=== PATIENT | female | born 1940 | race Caucasian/White ===

== ENCOUNTER 2021-03-18 16:46 | Inpatient (IN) | payer MEDICARE, OTHER ==
[~2021-03-18] VITALS: Ht 167.6 cm; Wt 83.5 kg
[2021-03-18] MEDS ORDERED: ARIP15TA3 PO (21:56)
[2021-03-18] MEDS ORDERED: MIRT-121 PO (21:56)
[2021-03-18] MEDS ORDERED: CLON1TAB PO (21:56)
[2021-03-18] MEDS ORDERED: BENA20TA78 PO (21:56)
[2021-03-18] MEDS ORDERED: TRAZ-182 PO (21:56)
[2021-03-18] MEDS ORDERED: AMLO-213 PO (21:56)
[2021-03-18] MEDS ORDERED: BLOOD SUGAR DIAGNOSTIC 1 EACH STRIP IN ONE (22:00)
[2021-03-18] MEDS ORDERED: ACETAMINOPHEN 325 MG TABLET PO PRN (22:00)
[2021-03-18] MEDS ORDERED: LORAZEPAM 0.5 MG TABLET PO PRN (22:00)
[2021-03-18] MEDS ORDERED: MAGNESIUM HYDROXIDE 30 ML UDC PO PRN (22:00)
[2021-03-18] MEDS ORDERED: MAG HYDROX/AL HYDROX/SIMETH 30 ML UDC PO PRN (22:00)
[2021-03-18] MEDS ORDERED: TEMAZEPAM 7.5 MG CAPSULE PO PRN (22:00)
[2021-03-19 03:47] VITALS: BP 146/77
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
[2021-03-19 08:00] VITALS: BP 126/70
[2021-03-19] MEDS: BENAZEPRIL HCL 10 MG TABLET PO SCH (08:57)
[2021-03-19] MEDS: AMLODIPINE BESYLATE 10 MG TABLET PO SCH (08:57)
[2021-03-19 14:22] LABS: CHOLESTEROL 135 mg/dL (<200); HDL CHOLESTEROL 68 mg/dL (40-60); LDL 55 mg/dL (0-99); TRIGLYCERIDES 52 mg/dL (30-150)
[2021-03-19 16:00] VITALS: BP 119/64
[2021-03-19 20:00] VITALS: BP 128/70
[2021-03-19 20:43] LABS: BILIRUBIN,TOTAL 0.2 mg/dL (0.2-1.0); CALCIUM, SERUM 8.6 mg/dL (8.5-10.1); CREATININE 1.1 mg/dL (0.6-1.3); POTASSIUM 3.8 mmol/L (3.5-5.1); TOTAL PROTEIN, SERUM 6.8 g/dL (6.4-8.2)
[2021-03-19] MEDS: MIRTAZAPINE 15 MG TABLET PO SCH (21:15)
--- NOTE | 2021-03-19 23:06 | NUR ---
RN NOTE: INSOMNIA VERBALIZED INABILITY TO SLEEP AND REQUESTED SLEEPING MEDICINE. PRN RESTORIL 15 MG PO ADMINISTERED.
[2021-03-20] MEDS ORDERED: LORAZEPAM 0.5 MG TABLET PO PRN (04:00)
[2021-03-20 08:00] VITALS: BP 140/66
[2021-03-20] MEDS: AMLODIPINE BESYLATE 10 MG TABLET PO SCH (08:26)
[2021-03-20] MEDS: BENAZEPRIL HCL 10 MG TABLET PO SCH (08:27)
[2021-03-20] MEDS: ARIPIPRAZOLE 5 MG TABLET PO SCH (08:30)
[2021-03-20 16:00] VITALS: BP 122/66
[2021-03-20 19:34] VITALS: BP 114/64
[2021-03-20 20:05] VITALS: BP 114/64
--- NOTE | 2021-03-20 21:30 | NUR ---
RN NOTE PATIENT WAS SEEN BY DR. FRANCOIS, NO NEW ORDER AT THIS TIME.
[2021-03-20] MEDS: MIRTAZAPINE 15 MG TABLET PO SCH (21:31)
[2021-03-20] MEDS: TEMAZEPAM 7.5 MG CAPSULE PO PRN (22:38)
--- NOTE | 2021-03-20 22:39 | NUR ---
RN NOTE: INSOMNIA PATIENT VERBALIZED INABILITY TO SLEEP AND REQUESTED SLEEPING MEDICINE. PRN RESTORIL 7.5 MG 1 CAP PO ADMINISTERED ORDERED. WILL CONTINUE TO MONITOR FOR ANY CHANGE OF CONDITION.
[2021-03-21 08:00] VITALS: BP 113/61
[2021-03-21] MEDS: BENAZEPRIL HCL 10 MG TABLET PO SCH (09:01)
[2021-03-21] MEDS: AMLODIPINE BESYLATE 10 MG TABLET PO SCH (09:01)
[2021-03-21] MEDS: ARIPIPRAZOLE 5 MG TABLET PO SCH (09:01)
--- NOTE | 2021-03-21 09:31 | NUR ---
MADELIN Initial Discharge Plan: Patient currently resides at home located at [address] [place] [address]; ([phone]). MADELIN will discuss treatment and discharge plan with family and MD for appropriate placement.
--- NOTE | 2021-03-21 10:57 | NUR ---
SW Family Contact: SW attempted to contact patient's son Fernando ([phone]), however, mailbox was full and this SW was unable to leave a message.
--- NOTE | 2021-03-21 12:41 | NUR ---
MADELIN Family Contact: MADELIN spoke with patient's son Fernando ([phone]) to notify of patient's admission. Son Fernando stated pt resides at a [facility] called [facility]. SW discussed treatment and discharge planning. Son reported he lives in [place] and is involved in her care.
--- NOTE | 2021-03-21 12:42 | NUR ---
[facility]: MADELIN contacted the adele King ([phone]) provided for [facility]. MADELIN contacted ([phone], , [place]: [phone] who is the emergency response coordinator; MADELIN left a voicemail).
[2021-03-21 15:59] VITALS: BP 104/65
--- NOTE | 2021-03-21 19:24 | NUR ---
alert and with good eye contact speech clear smiles when spoken to assisted back to bed after visiting the bathroom using her walker slow steady gait
[2021-03-21 20:00] VITALS: BP 125/78
[2021-03-21] MEDS: MIRTAZAPINE 15 MG TABLET PO SCH (21:17)
[2021-03-21] MEDS: TEMAZEPAM 7.5 MG CAPSULE PO PRN (22:59)
--- NOTE | 2021-03-21 22:59 | NUR ---
GPS-RN NOTES: INSOMNIA PATIENT C/O INABILITY TO SLEEP. PRN RESTORIL 7.5MG PO GIVEN. WILL CONTINUE TO MONITOR.
[2021-03-22 08:00] VITALS: BP 130/71
[2021-03-22] MEDS: BENAZEPRIL HCL 10 MG TABLET PO SCH (09:08)
[2021-03-22] MEDS: ARIPIPRAZOLE 5 MG TABLET PO SCH ×2 (09:08→22:38)
[2021-03-22] MEDS: AMLODIPINE BESYLATE 10 MG TABLET PO SCH (09:09)
--- NOTE | 2021-03-22 09:28 | NUR ---
[employer]: SW received a call from Chante the controller operations and hr manager. She reported that pt requires more assistance and they are unable to provide the appropriate care for pt. Chante expressed that pt only has a nurse visiting the pt everyday for medication management and has a caregiver who checks in on pt for about an hour.
--- NOTE | 2021-03-22 09:28 | NUR ---
SW Family Contact: SW attempted to contact patient's son Fernando ([phone]), however, mailbox was full and this SW was unable to leave a message. SW wanted to discuss nursing facility options.
--- NOTE | 2021-03-22 13:17 | NUR ---
SNF Referral: MADELIN sent clinicals to Lillian alvarez from [facility] ([phone]) for placement option. SW sent H & P, progress notes, and medication list.
--- NOTE | 2021-03-22 13:19 | NUR ---
MADELIN Family Contact: SW contacted patient's son Fernando ([phone]) and discussed discharge planning. MADELIN expressed that Chante management of [facility] ([phone]) is not receiving the appropriate care and needs higher level of care. Fernando son was agreeable with this.
--- NOTE | 2021-03-22 13:29 | NUR ---
Doctor Contact: SW received a call from patient's psychiatrist Dr. Lopes ([phone]) who wanted updates on pt and her status. Doctor stated that pt will need a higher level of care and has attempted in the past to offer but pt had denied.
[2021-03-22 16:06] VITALS: BP 114/61
[2021-03-22] MEDS: MIRTAZAPINE 15 MG TABLET PO SCH (21:16)
[2021-03-23] MEDS: TEMAZEPAM 7.5 MG CAPSULE PO PRN (00:03)
--- NOTE | 2021-03-23 00:03 | NUR ---
GPS-RN NOTES: INSOMNIA PATIENT IS UNABLE TO SLEEP. PRN RESTORIL 7.5MG PO GIVEN ORDERED. WILL CONTINUE TO MONITOR.
[2021-03-23 08:00] VITALS: BP 132/80
[2021-03-23] MEDS: ARIPIPRAZOLE 5 MG TABLET PO SCH ×2 (08:24→21:40)
[2021-03-23] MEDS: BENAZEPRIL HCL 10 MG TABLET PO SCH (08:25)
[2021-03-23] MEDS: AMLODIPINE BESYLATE 10 MG TABLET PO SCH (08:25)
--- NOTE | 2021-03-23 14:46 | NUR ---
[employer]: SW received a call from patient's case management director Kinsey ([phone]) who is pt's assigned case management director. Kinsey wanted updates on pt's status.
[2021-03-23 16:00] VITALS: BP 140/76
[2021-03-23 20:00] VITALS: BP 143/76
[2021-03-23] MEDS: MIRTAZAPINE 15 MG TABLET PO SCH (21:22)
[2021-03-24] MEDS: TEMAZEPAM 7.5 MG CAPSULE PO PRN ×2 (01:36→21:25)
--- NOTE | 2021-03-24 01:38 | NUR ---
GPS-RN NOTES: INSOMNIA PATIENT IS UNABLE TO SLEEP. PRN RESTORIL 7.5MG PO GIVEN ORDERED. WILL CONTINUE TO MONITOR.
[2021-03-24 08:00] VITALS: BP 117/66
[2021-03-24] MEDS: ARIPIPRAZOLE 5 MG TABLET PO SCH ×2 (08:37→21:24)
[2021-03-24] MEDS: AMLODIPINE BESYLATE 10 MG TABLET PO SCH (08:37)
[2021-03-24] MEDS: BENAZEPRIL HCL 10 MG TABLET PO SCH (08:38)
--- NOTE | 2021-03-24 11:33 | NUR ---
MADELIN Note: SW spoke with patient and discussed discharge planning. SW shared that she is accepted at [facility] and she was accepting of this.
--- NOTE | 2021-03-24 13:12 | NUR ---
Court Hearing: Patient's court hearing for 5800 was today and it was upheld for GD.
--- NOTE | 2021-03-24 13:24 | NUR ---
MADELIN Family Contact: SW attempted to contact patient's son Fernando ([phone]) to notify that pt is accepted at [facility], however, mailbox was full.
--- NOTE | 2021-03-24 13:25 | NUR ---
SNF Contact: SW received a call from Lillian admin from [facility] ([phone]) who stated that pt is accepted.
[2021-03-24 16:00] VITALS: BP 117/53
[2021-03-24 20:00] VITALS: BP 129/90
[2021-03-24] MEDS: MIRTAZAPINE 15 MG TABLET PO SCH (21:24)
[2021-03-25 08:00] VITALS: BP 133/68
[2021-03-25] MEDS: ARIPIPRAZOLE 5 MG TABLET PO SCH ×2 (08:29→21:37)
[2021-03-25] MEDS: BENAZEPRIL HCL 10 MG TABLET PO SCH (08:29)
[2021-03-25] MEDS: AMLODIPINE BESYLATE 10 MG TABLET PO SCH (08:29)
[2021-03-25 16:00] VITALS: BP 112/73
--- NOTE | 2021-03-25 19:46 | NUR ---
RN OPENING NOTES Patient is awake A&Ox2, hopeful and positive. Not oriented to situation and disorganized thoughts. no HI/SI. Safety measures in place.
[2021-03-25 20:00] VITALS: BP 141/77
[2021-03-25] MEDS: MIRTAZAPINE 15 MG TABLET PO SCH (21:37)
[2021-03-26 08:00] VITALS: BP 133/72
[2021-03-26] MEDS: ARIPIPRAZOLE 5 MG TABLET PO SCH ×2 (08:09→21:50)
[2021-03-26] MEDS: BENAZEPRIL HCL 10 MG TABLET PO SCH (08:09)
[2021-03-26] MEDS: AMLODIPINE BESYLATE 10 MG TABLET PO SCH (08:10)
[2021-03-26 16:00] VITALS: BP 116/60
[2021-03-26 20:00] VITALS: BP 136/61
[2021-03-26] MEDS: MIRTAZAPINE 15 MG TABLET PO SCH (21:51)
[2021-03-27 08:00] VITALS: BP 136/66
[2021-03-27] MEDS: ARIPIPRAZOLE 5 MG TABLET PO SCH ×2 (08:37→21:25)
[2021-03-27] MEDS: AMLODIPINE BESYLATE 10 MG TABLET PO SCH (08:37)
[2021-03-27] MEDS: BENAZEPRIL HCL 10 MG TABLET PO SCH (08:37)
[2021-03-27 18:18] VITALS: BP 129/79
[2021-03-27 19:52] VITALS: BP 116/68
[2021-03-27 20:15] VITALS: BP 116/68
[2021-03-27] MEDS: MIRTAZAPINE 15 MG TABLET PO SCH (21:30)
[2021-03-27] MEDS: TEMAZEPAM 7.5 MG CAPSULE PO PRN (22:50)
--- NOTE | 2021-03-27 22:52 | NUR ---
RN NOTE: INSOMNIA PATIENT IS UNABLE TO SLEEP AND REQUESTED TO TAKE SLEEPING MEDICINE. PRN RESTORIL 7.5MG 1 CAP PO GIVEN ORDERED. WILL CONTINUE TO MONITOR.
[2021-03-28 08:00] VITALS: BP 127/75
[2021-03-28] MEDS: ARIPIPRAZOLE 5 MG TABLET PO SCH ×2 (08:19→22:15)
[2021-03-28] MEDS: AMLODIPINE BESYLATE 10 MG TABLET PO SCH (08:20)
[2021-03-28] MEDS: BENAZEPRIL HCL 10 MG TABLET PO SCH (08:20)
[2021-03-28 16:00] VITALS: BP 113/70
[2021-03-28 20:00] VITALS: BP 144/87
[2021-03-28] MEDS ORDERED: ARIPIPRAZOLE 5 MG TABLET PO SCH (22:00)
[2021-03-28] MEDS: MIRTAZAPINE 15 MG TABLET PO SCH (22:15)
[2021-03-29 08:00] VITALS: BP 138/70
[2021-03-29] MEDS: ARIPIPRAZOLE 5 MG TABLET PO SCH ×2 (08:54→21:16)
[2021-03-29] MEDS: BENAZEPRIL HCL 10 MG TABLET PO SCH (08:55)
[2021-03-29] MEDS: AMLODIPINE BESYLATE 10 MG TABLET PO SCH (08:55)
--- NOTE | 2021-03-29 11:55 | NUR ---
MADELIN Family Contact: SW attempted to contact patient's son Fernando ([phone]) to notify that pt is accepted at [facility], however, mailbox was full and unable to leave a voicemail.
--- NOTE | 2021-03-29 12:22 | NUR ---
MADELIN Family Contact: MADELIN spoke with patient's son Fernando ([phone]) and stated that pt is accepted at [facility] and he was agreeable with this.
[2021-03-29 16:00] VITALS: BP 140/79
[2021-03-29 20:00] VITALS: BP 125/72
[2021-03-29] MEDS: MIRTAZAPINE 15 MG TABLET PO SCH (21:16)
[2021-03-30 08:00] VITALS: BP 144/84
[2021-03-30] MEDS: BENAZEPRIL HCL 10 MG TABLET PO SCH (08:20)
[2021-03-30] MEDS: AMLODIPINE BESYLATE 10 MG TABLET PO SCH (08:20)
[2021-03-30] MEDS: ARIPIPRAZOLE 5 MG TABLET PO SCH ×2 (08:37→22:10)
[2021-03-30 16:00] VITALS: BP 128/67
[2021-03-30] MEDS: MIRTAZAPINE 15 MG TABLET PO SCH (22:10)
[2021-03-31 08:00] VITALS: BP 135/76
[2021-03-31] MEDS: ARIPIPRAZOLE 5 MG TABLET PO SCH ×2 (08:58→21:40)
[2021-03-31] MEDS: BENAZEPRIL HCL 10 MG TABLET PO SCH (08:59)
[2021-03-31] MEDS: AMLODIPINE BESYLATE 10 MG TABLET PO SCH (09:00)
[2021-03-31 16:00] VITALS: BP 118/71
--- NOTE | 2021-03-31 19:30 | NUR ---
GPS RN NOTE, RECEIVED PATIENT AWAKE AND IN BED, PATIENT HAS NO S/S OR COMPLAINTS OF PAIN AT THIS TIME. PATIENT IS DISPLAYING NO S/S OF APPARENT DISTRESS AT THIS TIME. PATIENT BREATHING IS UNLABORED WITH EQUAL RISE AND FALL OF THE CHEST. PATIENT IS ALERT AND ORIENTED X 2 ON ROOM AIR WITH A SPO2 99%. PATIENT IS COMPLIANT WITH MEDICATIONS, CALM, POLITE, ISOLATIVE, AND COOPERATIVE. PATIENT DENIES SUICIDAL AND HOMICIDAL IDEATIONS AT THIS TIME. PATIENT ASSISTED WITH TURNING AND REPOSITIONING Q2HR AND PRN FOR COMFORT AND CIRCULATION. PATIENT HAS NO NEEDS AT THIS TIME. PATIENT EDUCATED ON THE USE OF THE CALL KIRKLAND. PATIENT BED SIDE RAILS UP X 2 FOR SAFETY. PATIENT BED IS LOCKED, LOW, WITH BED ALARM ON. WILL CONTINUE TO MONITOR THIS PATIENT Q15 MINUTES WITH THE HELP OF STAFF TO MAINTAIN SAFETY.
[2021-03-31 20:00] VITALS: BP 131/79
[2021-03-31] MEDS: MIRTAZAPINE 15 MG TABLET PO SCH (21:40)
[2021-04-01 08:00] VITALS: BP 141/80
--- NOTE | 2021-04-01 08:11 | NUR ---
Discharge Note: Patient will be discharged to a [facility] located at [address] [place] [address]; ([phone]) Please arrange ambulance transportation. Marketing Programs Manager spoke with Beka, Copywriter at [facility] ([phone]) stated patient will be accepted at facility today. Patient is alert and oriented x2, and is not able to plan for self-care at this time, but is willing to accept care provided for her at the facility. Patient denies any suicidal or homicidal ideations. Patient is aware and agreeable with discharge plans. Patients son Fernando ([phone]) is aware and agreeable with discharge. Patient will continue to follow-up with her (Psychiatrist) located at [address], [place] [address]; ([phone]) and (Wood Floor Refinisher) Dr. Gasca [address], [place] [address]; ([phone]). Patient presents with euthymic mood and congruent affect.
[2021-04-01 08:12] VITALS: BP 141/80
[2021-04-01] MEDS: BENAZEPRIL HCL 10 MG TABLET PO SCH (08:12)
[2021-04-01] MEDS: AMLODIPINE BESYLATE 10 MG TABLET PO SCH (08:12)
[2021-04-01] MEDS: ARIPIPRAZOLE 5 MG TABLET PO SCH (08:12)
--- NOTE | 2021-04-01 09:07 | NUR ---
Dr. Daigle gave an order to D/C hold and D/C to [facility] and to follow up with psych and medical doctors and to continue same meds including prn. Pt. without distress, denies suicidal and homicidal. Belongings ready and discharge papers ready. Will continue to monitor for safety.
--- NOTE | 2021-04-01 10:08 | NUR ---
Dr. Martin made aware of the discharge and reconciled the meds to continue in the facility.
--- NOTE | 2021-04-01 11:18 | NUR ---
Report given Sunil FELT CEMENTER over the facility and pt. signed the discharge papers.
--- NOTE | 2021-04-01 12:50 | NUR ---
Pt. left the unit via ambulance and transported via a gurney with belongings. Left without distress and no agitation noted. V/S taken: BP 118/72, NE 84, RR 18, temp 98.0 and oxygen sat 99%.
== END 2021-04-01 12:50 | DRG 885 ==
LOC: GPS 20:54
PROVIDERS: ADMIT Psychiatry & Neurology Psychiatry; ATTEND Student in an Organized Health Care Education/Training Program
DX: F25.9 Schizoaffective disorder, unspecified (principal); N17.9 Acute kidney failure, unspecified; F23 Brief psychotic disorder; E78.5 Hyperlipidemia, unspecified; N28.9 Disorder of kidney and ureter, unspecified; Z90.710 Acquired absence of both cervix and uterus; Z59.00 Homelessness unspecified; I25.2 Old myocardial infarction; I10 Essential (primary) hypertension; Z73.6 Limitation of activities due to disability; Z82.49 Family history of ischemic heart disease and other diseases of the circulatory system; Z80.9 Family history of malignant neoplasm, unspecified
CPT/HCPCS: 36415; 80048-TC; 80053-TC; 80061-TC; 87081-TC; 97112-TC; 97116-TC; 97530-TC